=== PATIENT | male | born 1960 | race Caucasian/White ===

== ENCOUNTER → 2017-04-09 | Outpatient (CLI) | payer MEDICARE, OTHER ==
[~2017-04-09] MED LIST: ACIPHEX20 MG PO; ACTOS30 MG PO; ALBUTEROL17 GM INH; CELEBREX PO; CLARITIN10 MG PO; CRESTOR10 MG PO; FLEXERIL PO; FLOMAX0.4 M1 PO; GLUCOPHAGE XR500 MG PO; GLUCOTROL10 MG PO; LEVEMIR FL100 UNIT/1 SUBQ; LISINOPRIL2.5 MG PO; LOPID600 MG PO; LYRICA PO; METFORMIN PO; METOPROLOL TAR25 MG PO; NEXIUM PO; NORCO 10-325 TA1 TAB PO; REGLAN PO; REQUIP0.5 MG PO; TOPROL XL PO; ULTRAM PO; VALTREX500 MG PO; VIAGRA PO; XYZAL5 MG PO
--- NOTE | ~2017-04-09 | CR63 ---
[facility] A Service of [facility] RADIOLOGY TEXT RESULTS PATIENT: [id number] : 56 UNIT #: [id number] AGE: [address]: Bernarda Ruff MD SEX: M ORDER DR: [id number] [facility] [address] [place], [place] [address] [id number] O MR#: [id number] Acc #: [id number] NAME: LEE COLVIN : 1960 SEX: M STUDY DATE/TIME: 04/09/2017 13:06 UNIT: [facility] ROOM: STUDY DESCRIPTION: CR Chest 2 View Attending Physician: Bernarda Ruff M.D. Ordering Physician: Bernarda Ruff M.D. Primary Care Physician: Bernarda Ruff M.D. MEDICAL IMAGING REPORT This report is preliminary unless electronic signature is present EXAM Chest x-ray, 04/09/2017. HISTORY 56-year-old male smoker with a history of COPD complaining of shortness of air, weight loss, cough, and congestion. Symptoms for at least 6 months. TECHNIQUE PA and lateral upright chest series. FINDINGS The exam shows advanced pulmonary emphysema and scattered pulmonary fibrotic scarring. No acute pulmonary infiltrate or pleural effusion is visible. Heart size and pulmonary vascularity are normal. Benign calcified granuloma in the left upper lung. No change since 04/29/2016. IMPRESSION 1. No active disease. 2. Pulmonary emphysema with mild scattered pulmonary fibrotic scarring. Lungs appear clear. Dictated by... Mele Stokes M.D. THIS IS AN ELECTRONICALLY VERIFIED REPORT Mele Stokes M.D. at 04/10/2017 4:35 PM RGW/roe TD: 04/09/2017 16:31 JOB #: [id number] [facility] A Service of [facility] RADIOLOGY TEXT RESULTS PATIENT: [facility]EE COLVIN [id number] : 56 UNIT #: [id number] AGE: [address]: Bernarda Ruff MD SEX: M ORDER DR: MEDICAL IMAGING REPORT Page 1 of 1 COPY
== END | disposition home or self-care (01) ==
LOC: CRAD 12:28
DX: J44.9 Chronic obstructive pulmonary disease, unspecified (principal); R91.8 Other nonspecific abnormal finding of lung field; Z72.0 Tobacco use; R63.4 Abnormal weight loss
CPT/HCPCS: 71020